=== PATIENT | male | born 1975 | race Two or more races ===

== ENCOUNTER 2017-09-15 09:09 | Emergency (ER) | payer SELFPAY ==
--- NOTE | 2017-09-15 09:11 | PHYS DOC ---
Adult General Chief Complaint Chief Complaint: BACK PAIN OR INJURY HPI HPI Patient is a 41 year old male who presents with right lower back pain. Started yesterday. He states is worse when she tries to sit or twists and turns. He denies any dysuria, denies any abdominal pain or testicular pain. He tried some Advil without any relief. He denies any numbness tingling or weakness in his legs. He denies any past medical exam, allergies to meds, and denies being on any meds currently other than occasional Advil. Review of Systems Review of Systems Constitutional: Denies fever or chills [] Eyes: Denies change in visual acuity, redness, or eye pain [] HENT: Denies nasal congestion or sore throat [] Respiratory: Denies cough or shortness of breath [] Cardiovascular: No additional information not addressed in HPI [] GI: Denies abdominal pain, nausea, vomiting, bloody stools or diarrhea [] : Denies dysuria or hematuria [] Musculoskeletal: Positive for back pain. Denies joint pain [] Integument: Denies rash or skin lesions [] Neurologic: Denies headache, focal weakness or sensory changes [] Endocrine: Denies polyuria or polydipsia [] All other systems were reviewed and found to be within normal limits, except as documented in this note. Physical Exam Physical Exam Constitutional: Well developed, well nourished, no acute distress, non-toxic appearance. [] HENT: Normocephalic, atraumatic, bilateral external ears normal, oropharynx moist, no oral exudates, nose normal. [] Eyes: PERRLA, EOMI, conjunctiva normal, no discharge. [] Neck: Normal range of motion, no tenderness, supple, no stridor. [] Cardiovascular:Heart rate regular rhythm, no murmur [] Lungs & Thorax: Bilateral breath sounds clear to auscultation [] Abdomen: Bowel sounds normal, soft, no tenderness, no masses, no pulsatile masses. [] Skin: Warm, dry, no erythema, no rash. [] Back: No midline tenderness, tender palpation in the right lumbar paraspinal area, no ecchymosis appreciated no CVA tenderness. [] Extremities: No tenderness, no cyanosis, no clubbing, ROM intact, no edema. Straight leg raise bilaterally negative, strength 5 out of 5 with flexion of hip , knees, ankles, bilaterally Neurologic: Alert and oriented X 3, normal motor function, normal sensory function, no focal deficits noted. [] Psychologic: Affect normal, judgement normal, mood normal. [] EKG EKG [] Radiology/Procedures Radiology/Procedures [] Impressions: Muscle spasm Course & Med Decision Making Course & Med Decision Making Pertinent Labs and Imaging studies reviewed. (See chart for details) We'll discharge on Flexeril and Advil. Physical exam non-concerning. Return precautions given for weakness, numbness in legs or other concerns. He's follow- up with primary care physician within the next few days. Dragon Disclaimer Dragon Disclaimer This electronic medical record was generated, in whole or in part, using a voice recognition dictation system. Departure Departure Impression: Primary Impression: Muscle spasm Disposition: 01 HOME, SELF-CARE Condition: STABLE Patient Instructions: Muscle Strain Additional Instructions: Your back pain is likely muscle spasm. You being discharged home. You can use Flexeril as needed and as indicated. You can also use Advil 400 mg every 8 hours for next 4-5 days. Please drink a few extra glass of water while taking this high dose of Advil. Return back to ER if you have severe pain, fevers, pain in your abdomen, troubles urinating, weakness or numbness in your legs or other concerns. Flexeril can make you sleepy, so be careful while using it, please don't drive or drink alcohol while taking it. Scripts Cyclobenzaprine Hcl (CYCLOBENZAPRINE HCL) 10 Mg Tablet 1 TAB PO TID Y for MUSCLE PAIN, #30 TAB Prov: JEROD QUICK MD 09/15/17 JEROD QUICK MD Sep 15, 2017 09:11
[2017-09-15 09:30] VITALS: BP 121/78
[2017-09-15] MEDS ORDERED: CYCL10TA2 PO (09:44)
== END 2017-09-15 09:56 | disposition home or self-care (01) ==
LOC: ER 09:09
DX: M62.830 Muscle spasm of back (principal)
CPT/HCPCS: 99283